=== PATIENT | female | born 1960 | race Asian ===

== ENCOUNTER 2018-08-11 16:11 | Emergency (ER) | payer MEDICAID ==
[~2018-08-11] VITALS: Ht 157.5 cm; Wt 82.2 kg
[2018-08-11] MEDS ORDERED: ASPIRIN 81 MG TABLET CHEW PO ONE (16:30)
[2018-08-11] MEDS ORDERED: ASPIRIN 81 MG TABLET CHEW ONE (16:35)
--- NOTE | 2018-08-11 16:40 | NUR ---
PT TO ED FOR INTERMITTENT DIZZINESS X "A FEW MONTHS" AND CHEST PRESSURE STARTING TODAY'S DIZZY EPISODE. NO NUMBNESS OR TINGLING REPORTED. CONNECTED TO MONITORS. VSS. NO NEEDS AT THIS TIME. AWAITING EDMD ASSESSMENT.
--- NOTE | 2018-08-11 17:02 | NUR ---
EDMD TO BEDSIDE FOR ASSESSMENT. AWAITING ORDERS.
[2018-08-11 17:08] LABS: ALBUMIN 3.7 g/dL (3.4-5.0); ANION GAP 5 mmol/L (5-15); CALCIUM 8.7 mg/dL (8.5-10.1); CHLORIDE 113 mmol/L (98-107)
[2018-08-11] MEDS ORDERED: MECLIZINE CHEWABLE 25 MG TAB ONE (17:08)
[2018-08-11 17:12] LABS: BASOPHILS # (AUTO) 0.02 x10^3/uL (0-0.1); BASOPHILS % (AUTO) 0 % (0-1); EOSINOPHILS # (AUTO) 0.12 x10^3/uL (0-0.4); EOSINOPHILS % (AUTO) 2 % (1-7); LYMPHOCYTES # (AUTO) 1.34 x10^3/uL (1-3.4); LYMPHOCYTES % (AUTO) 18 % (22-44); MD NO; MEAN CORPUSCULAR HEMOGLOBIN 31.1 pg (27.0-34.8); MEAN CORPUSCULAR VOLUME 91.7 fL (80-100); MEAN PLATELET VOLUME 7.3 fL (7.4-10.4); MONOCYTES # (AUTO) 0.36 x10^3/uL (0.2-0.8); MONOCYTES % (AUTO) 5 % (2-9); NEUTROPHILS # (AUTO) 5.46 x10^3/uL (1.8-6.8); NEUTROPHILS % (AUTO) 75 % (42-75); PLATELET COUNT 121 x10^3/uL (130-400); RED BLOOD COUNT 5.08 x10^6/uL (3.82-5.3); RED CELL DISTRIBUTION WIDTH 14.6 % (9.6-15.2)
[2018-08-11 17:13] LABS: CREATININE 1.01 mg/dL (0.55-1.02); TROPONIN I < 0.015 ng/mL (0.000-0.045)
[2018-08-11] MEDS ORDERED: MECLIZINE CHEWABLE 25 MG TAB PO ONE (17:30)
[2018-08-11] MEDS ORDERED: NITROGLYCERIN SINGLE TAB 0.4 MG SL PRN (17:30)
--- NOTE | 2018-08-11 18:42 | NUR ---
ALL RESUTLS BACK. CHART UP FOR RECHECK. PT RESTING IN ROOM WITH FAMILY AT BEDSIDE. VSS. NO NEEDS AT THIS TIME. CALL LIGHT WITHIN REACH.
[2018-08-11 19:33] VITALS: BP 136/62
== END 2018-08-11 19:34 | disposition home or self-care (01) ==
LOC: ED 19:20
DX: R42 Dizziness and giddiness (principal); R07.89 Other chest pain; H53.8 Other visual disturbances; I10 Essential (primary) hypertension; F17.200 Nicotine dependence, unspecified, uncomplicated
CPT/HCPCS: 36415; 70450; 71046; 80048; 82040; 84484; 85025; 93005; 99284